=== PATIENT | female | born 1965 | race African-American/Black ===

== ENCOUNTER → 2017-06-19 | Outpatient (CLI) | payer OTHER | LOC: RAD 03:05 | DX: Z12.31 Encounter for screening mammogram for malignant neoplasm of breast (principal) ==

== ENCOUNTER → 2017-06-29 | Outpatient (CLI) | payer OTHER | LOC: RAD 09:11 | DX: R92.0 Mammographic microcalcification found on diagnostic imaging of breast (principal); R92.1 Mammographic calcification found on diagnostic imaging of breast ==

== ENCOUNTER → 2018-11-02 | Outpatient (CLI) | payer OTHER | LOC: RAD 10:44 | DX: N60.02 Solitary cyst of left breast (principal); R92.1 Mammographic calcification found on diagnostic imaging of breast ==

== ENCOUNTER → 2018-11-12 | Outpatient (CLI) | payer OTHER ==
--- NOTE | 2018-11-15 11:10 | PATH ---
[facility] [address] [place] [address] PATHOLOGY RPT PROCEDURE Name: JUNIOR POPIlir Bess Room #: REG [facility] Red.#: [id number] Admission: 11/12/18 Date of : 67 Discharge: Report #: [id number] Path Case #: [id number] [facility] Accession Number: [id number] . 01 Material submitted: . LEFT UPPER OUTER BREAST BIOSPY . 01 Clinical history: . Left breast calcifications . 02 Diagnosis: Breast, left breast upper outer, stereotactic needle core biopsy: - Proliferative fibrocystic changes associated with extensive columnar cell hyperplasia, dilated ducts, adenosis, and usual ductal hyperplasia. - Columnar cell hyperplasia associated with coarse calcifications. - Negative for atypia or malignancy. [facility]/11/13/2018 . 02 Comment: Dr. Vandana Robertson and Dr. Harjinder Lira have seen circulation representative slides of this case and concur with my diagnosis. (IUV:pit 11/13/2018) . 02 Electronically signed: . Tala Minaya MD, Pathologist NPI- [id number] . 01 Gross description: . Received in formalin labeled "Kamran Pop, left," and additionally labeled on the requisition as "breast calcifications," are multiple needle cores of yellow-foote fibrofatty tissue measuring 5.3 x 2.6 x 0.6 cm in aggregate dimensions. Additionally received in the container is a white plastic in cassette containing a single needle core of yellow-foote fibrofatty tissue measuring 3.1 cm in length and 0.4 cm in diameter. The tissue in the cassette is submitted in its entirety in cassette A1 and the remaining tissue is submitted entirely in cassette A2 and A3. The cold ischemic time is unknown. The total formalin fixation time is 10 hours and 10 minutes (TSD; 11/12/2018) TOB/TOB . 02 Pathologist provided ICD-10: N60.11, N62, N60.21 . 02 CPT . 125280 Specimen Comment: A courtesy [place] [address] PATHOLOGY RPT PROCEDURE Name: KAMRAN POP A Room #: REG CLEusebio Tim#: [id number] Admission: 11/12/18 Date of : 67 Discharge: Report #: [id number] Path Case #: [id number] Specimen Comment: [phone], . Specimen Comment: Report sent to / DR SIDHU Specimen Comment: A duplicate report has been generated due to demographic updates. Performed at: [address], [place] [id number] MD Joel Nugent MD Phone: [phone] Performed at: [address] [id number] MD Tala Minaya MD Phone: [phone]
== END | disposition home or self-care (01) ==
LOC: RADSTEREO 03:18
DX: N60.22 Fibroadenosis of left breast (principal); R92.0 Mammographic microcalcification found on diagnostic imaging of breast; N62 Hypertrophy of breast; N60.82 Other benign mammary dysplasias of left breast

== ENCOUNTER → 2020-06-23 | Outpatient (CLI) | payer OTHER, SELFPAY | LOC: ULTRA 11:48 | PROVIDERS: ATTEND Nurse Practitioner | DX: N92.1 Excessive and frequent menstruation with irregular cycle (principal) ==

== ENCOUNTER → 2020-07-20 | Outpatient (CLI) | payer OTHER | LOC: BC 10:58 | PROVIDERS: ATTEND Nurse Practitioner | DX: Z12.31 Encounter for screening mammogram for malignant neoplasm of breast (principal) ==

== ENCOUNTER → 2021-07-21 | Outpatient (CLI) | payer OTHER | LOC: BC 13:12 | PROVIDERS: ATTEND Nurse Practitioner | DX: Z12.31 Encounter for screening mammogram for malignant neoplasm of breast (principal) ==